=== PATIENT | male | born 1970 | race Caucasian/White ===

== ENCOUNTER 2019-01-22 09:04 | Emergency (ER) | payer BC, SELFPAY ==
[2019-01-22 09:12] VITALS: BP 153/100; PULSE 92; RESP 22; TEMP 37.1; O2SAT 92
--- NOTE | 2019-01-22 09:12 | DI.RAD.S_ITS ---
PROCEDURE: XR CHEST 2V INDICATIONS: shortness of breath TECHNIQUE: 2 views of the chest were acquired. COMPARISON: [facility], , CHEST 2 VIEW, 08/19/2008, 21:45. FINDINGS: Surgical changes and devices: None. Lungs and pleura: There may be airspace disease developing at the left lung base. The perihilar interstitial markings are slightly prominent. No large effusion or pneumothorax is evident. Mediastinum: Mediastinal contours are normal. Heart size is normal. Bones and chest wall: No suspicious bony abnormalities. Soft tissues appear unremarkable. IMPRESSION: Questionable left basilar pneumonia versus overlying soft tissues. Dictated by: Obinna Oneill M.D. on 01/22/2019 at 8:38 Approved by: Obinna Oneill M.D. on 01/22/2019 at 8:47
[2019-01-22 09:15] VITALS: PULSE 112; RESP 26; O2SAT 88
[2019-01-22] MEDS: ALBUTEROL/IPRATROPIUM 3 ML AMPUL INH (09:27)
[2019-01-22 09:28] VITALS: PULSE 82; RESP 14; O2SAT 94
[2019-01-22 09:50] VITALS: BP 124/93; PULSE 109; PULSE 113; RESP 17; RESP 18; O2SAT 94; O2SAT 96
--- NOTE | 2019-01-22 09:51 | ED_ITS ---
HPI - SOB/Dyspnea General Chief Complaint: Shortness of Breath/Dyspnea Stated Complaint: trouble breathing, doesn't feel good Time Seen by Provider: 01/22/19 09:20 Source: patient Mode of arrival: ambulatory Limitations: no limitations History of Present Illness Patient is a 48-year-old male history of smoking presenting with increasing sh ortness of breath for the last 3 days. He says he has been coughing up productive sputum. He works in a [employer] he pushed through it not stopping even despite his breathing problems. He initially felt like he could not take a deep breath when he came in initial oxygen level was 88%. He has since had a breathing treatment he overall feels like his breathing is better than when he came in. However he is now noted to be tachycardic. MD Complaint: shortness of breath Context: occurred during exertion Consistency/Duration: constant Relieving factors: bronchodilators Exacerbating factors: exertion Known history of: COPD Associated symptoms: cough and sputum production Related Data Previous Rx's Medication Instructions Recorded albuterol sulfate [Ventolin HFA] 0 INH Q4H #8 gm 08/19/16 prednisone 0 PO QDAY #7 tab 08/19/16 albuterol sulfate 1 puff INHALATION Q4-6H PRN #8.5 01/22/19 gram levofloxacin [Levaquin] 750 mg PO DAILY #5 tab 01/22/19 prednisone 50 mg PO DAILY 5 Days #5 tab 01/22/19 Allergies Allergy/AdvReac Type Severity Reaction Status Date / Time latex [LATEX] Allergy Unknown Verified 01/22/19 11:12 Review of Systems Review of Systems GENERAL: Denies chills, fatigue, malaise, fever, sweats, travel HEENT: Denies sinus pain, ear pain, sore throat, difficulty swallowing, neck pain RESPIRATORY: See HPI CARDIOVASCULAR: Denies chest pain, palpitations, orthopnea, edema GASTROINTESTINAL: Denies nausea, vomiting, abdominal pain, diarrhea, constipation, melena. : Denies dysuria, frequency, incontinence, hematuria, urinary retention, flank pain. MUSCULOSKELETAL: Denies weakness, joint pain, or bony pain SKIN: No rash, no erythema, no pruritus NEUROLOGIC: Denies weakness, dizziness, headache, numbness, change in speech, confusion PSYCHIATRIC: No concerning psychosocial issues. 12 point review of systems is negative except for those stated above and HPI [facility] Medical History COPD (chronic obstructive pulmonary disease) (Acute) Social History Smoking Status: Current every day smoker Social History Smoking Status: Current every day smoker Exam Initial Vital Signs Initial Vital Signs: Vital Signs Temperature 98.8 F 01/22/19 09:12 Pulse Rate 92 H 01/22/19 09:12 Respiratory Rate 22 01/22/19 09:12 Blood Pressure 153/100 H 01/22/19 09:12 Pulse Oximetry 92 01/22/19 09:12 GENERAL: Well-appearing, well-nourished and in no acute distress. HEENT: Head atraumatic,EOMI, pupils reactive CARDIOVASCULAR: Tachycardic regular RESPIRATORY: Decreased breath sounds on the left crackles bilaterally able speak in full sentences no respiratory distress ABDOMEN: Soft, nontender. Normoactive bowel sounds all 4 quadrants. No guarding or rebound. EXTREMITIES: Normal range of motion, no clubbing or edema. Neurovascularly intact NEUROLOGICAL: Alert and oriented x4.Normal gait and speech. Cranial nerves II through XII grossly intact. SKIN: Warm, dry, no laceration, no petechiae, no rashes or lesions. Scores CURB-65 Confusion: No BUN >19mg/dL (>7mmol/L): No Respiratory rate greater or equal to 30: No SBP <90mmHg or DBP less or equal to 60mmHg: No Age 65 or Older: No CURB-65 Total: 0 Score 0-1 Outpatient care, Score 2 Inpt vs. Obs, Score 3 or over Inpt admit with ICU for score of 4-5 Course Orders Ordered: ED Orders 01/22/19 09:50 B Type Natriuretic Peptide Stat Complete Blood Count AUTO DIFF Stat Comprehensive Metabolic Panel Stat Lactate (Lactic Acid) Stat Procalcitonin Stat Troponin & CK Cardiac Panel Stat 01/22/19 09:58 CT angio chest PE protocol Stat Discontinued Medications Albuterol/Ipratropium (Duoneb) 3 ml INH NOW ONE Stop: 01/22/19 09:21 Last Admin: 01/22/19 09:27 Dose: 3 ml Sodium Chloride (Normal Saline 0.9%) 1,000 mls @ 1,000 mls/hr IV BOLUS ONE Stop: 01/22/19 10:56 Last Infusion: 01/22/19 11:40 Dose: 0 mls/hr Admin: 01/22/19 10:16 Dose: 1,000 mls/hr Methylprednisolone (Solu-Medrol 125 Mg Vial) 125 mg IV NOW ONE Stop: 01/22/19 09:58 Last Admin: 01/22/19 10:16 Dose: 125 mg Vital Signs - 8 hr 01/22/19 11:08 01/22/19 11:41 Pulse Rate 105 H 93 H Respiratory Rate 14 17 Blood Pressure 137/89 Blood Pressure [Right Arm] 132/96 H Pulse Oximetry 97 96 MDM - SOB/Dyspnea Lab Data Attestation: I reviewed the patient's lab results. Result diagrams: 01/22/19 09:50 01/22/19 09:50 Lab Results 01/22/19 01/22/19 01/22/19 Range/Units 09:50 09:50 09:50 WBC 7.9 (4.5-11.0) X10^3/uL RBC 5.01 (4.5-5.9) X10^6/uL Hgb 16.2 (13.5-17.5) g/dL Hct 47.2 (41-53) % MCV 94.1 (80-100) fL MCH 32.3 (26-34) PG MCHC 34.3 (30-36) % RDW 13.8 (11.6-14.8) % Plt Count 339 (150-400) X10^3/uL Neut % (Auto) 78.3 H (50-75) % Lymph % (Auto) 12.8 L (25-40) % Kingman % (Auto) 6.8 (3-14) % Eos % (Auto) 1.6 L (2-4) % Baso % (Auto) 0.5 (0-2) % Neut # (Auto) 6200 (6111-0420) /uL Lymph # (Auto) 1000 L (6176-8835) /uL Kingman # (Auto) 500 (0-900) /uL Eos # (Auto) 100 (0-450) /uL Baso # (Auto) 0 (0-100) /uL Sodium 143 (137-145) mmol/L Potassium 3.4 (3.4-5.1) mmol/L Chloride 102 (98-107) mmol/L Carbon Dioxide 25 (22-32) mmol/L BUN 8 L (9-20) mg/dL Creatinine 0.80 (0.66-1.25) mg/dL Estimated GFR > 60.0 (>60) mL/min BUN/Creatinine Ratio 10.0 (6-22) Glucose 114 H (70-100) mg/dL Lactate 2.4 H (0.7-2.1) mmol/L Calcium 9.5 (8.4-10.2) mg/dL Total Bilirubin 0.5 (0.2-1.3) mg/dL AST 28 (17-59) IU/L ALT 23 (21-72) IU/L Alkaline Phosphatase 80 (38-126) U/L Total Creatine Kinase (55-170) U/L CK-MB (CK-2) (<2.37) ng/mL CK-MB (CK-2) Rel Index (1.5-5.0) % Troponin I (0.01-0.034) ng/mL B-Natriuretic Peptide (<100) Total Protein 7.4 (6.3-8.2) g/dL Albumin 4.4 (3.5-5.0) g/dL Globulin 3.0 (1.7-4.1) g/dL Albumin/Globulin Ratio 1.5 (1.0-2.8) Procalcitonin (<0.5) ng/mL 01/22/19 01/22/19 01/22/19 Range/Units 09:50 09:50 09:50 WBC (4.5-11.0) X10^3/uL RBC (4.5-5.9) X10^6/uL Hgb (13.5-17.5) g/dL Hct (41-53) % MCV (80-100) fL MCH (26-34) PG MCHC (30-36) % RDW (11.6-14.8) % Plt Count (150-400) X10^3/uL Neut % (Auto) (50-75) % Lymph % (Auto) (25-40) % Kingman % (Auto) (3-14) % Eos % (Auto) (2-4) % Baso % (Auto) (0-2) % Neut # (Auto) (8065-9647) /uL Lymph # (Auto) (8169-0054) /uL Kingman # (Auto) (0-900) /uL Eos # (Auto) (0-450) /uL Baso # (Auto) (0-100) /uL Sodium (137-145) mmol/L Potassium (3.4-5.1) mmol/L Chloride (98-107) mmol/L Carbon Dioxide (22-32) mmol/L BUN (9-20) mg/dL Creatinine (0.66-1.25) mg/dL Estimated GFR (>60) mL/min BUN/Creatinine Ratio (6-22) Glucose (70-100) mg/dL Lactate (0.7-2.1) mmol/L Calcium (8.4-10.2) mg/dL Total Bilirubin (0.2-1.3) mg/dL AST (17-59) IU/L ALT (21-72) IU/L Alkaline Phosphatase (38-126) U/L Total Creatine Kinase 193 H (55-170) U/L CK-MB (CK-2) 1.27 (<2.37) ng/mL CK-MB (CK-2) Rel Index 0.7 L (1.5-5.0) % Troponin I < 0.012 (0.01-0.034) ng/mL B-Natriuretic Peptide < 100 (<100) Total Protein (6.3-8.2) g/dL Albumin (3.5-5.0) g/dL Globulin (1.7-4.1) g/dL Albumin/Globulin Ratio (1.0-2.8) Procalcitonin < 0.05 (<0.5) ng/mL Imaging Data Chest x-ray: Radiologist's impression: PROCEDURE: XR CHEST 2V INDICATIONS: shortness of breath TECHNIQUE: 2 views of the chest were acquired. COMPARISON: [facility], CHEST 2 VIEW, 08/19/2008, 21:45. FINDINGS: Surgical changes and devices: None. Lungs and pleura: There may be airspace disease developing at the left lung base. The perihilar interstitial markings are slightly prominent. No large effusion or pneumothorax is evident. Mediastinum: Mediastinal contours are normal. Heart size is normal. Bones and chest wall: No suspicious bony abnormalities. Soft tissues appear unremarkable. IMPRESSION: Questionable left basilar pneumonia versus overlying soft tissues. Dictated by: Obinna Oneill M.D. on 01/22/2019 at 8:38 CT scan - chest: Radiologist's impression: PROCEDURE: CT ANGIO CHEST PE PROTOCOL INDICATIONS: hypoxia tachycardic TECHNIQUE: After the administration of intravenous contrast, 2 mm thick sections acquired from the pulmonary apices to the posterior costophrenic angles. 3-dimensional maximum intensity projection (MIP) coronal and sagittal reformats were then acquired through the thorax. For radiation dose reduction, the following was used: automated exposure control, adjustment of mA and/or kV according to patient size. COMPARISON: [facility], , XR CHEST 2V, 01/22/2019, 9:13. FINDINGS: Image quality: Diagnostic. Pulmonary arteries: Pulmonary arteries are normal in size, and demonstrate no intraluminal filling defects to suggest central pulmonary embolism. Lungs and pleura: The mild pulmonary hyperexpansion is present. Apical emphysematous changes are identified. No focal consolidation, effusion, or pneumothorax is evident. Mild bronchial wall thickening within the bilateral lower lobes may be present. Mediastinum: Heart size is normal, without pericardial effusion. No mediastinal or hilar adenopathy. Coronary artery atherosclerosis is present. Thoracic aorta is normal in caliber and enhancement. Esophagus is normal in caliber. There is a small hiatal hernia. Bones and chest wall: No suspicious bony lesions. Ribs and thoracic spine appear intact throughout. Mild to moderate age-appropriate degenerative changes of the thoracic spine appear to be present. Thyroid gland is not enlarged or adequately evaluated. No axillary or supraclavicular adenopathy. Abdomen: The included portions of the upper abdomen demonstrate the liver to be diffusely hypodense when compared to the spleen. There is slightly more prominent hypodensity noted along the falciform ligament of the lateral segment of the left hepatic lobe, suggesting a more focally prominent area of fatty infiltration. IMPRESSION: 1. No evidence of pulmonary emboli. 2. Early emphysematous changes of the lungs with additional findings suggesting chronic obstructive pulmonary disease. Please correlate clinically. 3. Coronary artery atherosclerosis. 4. Nonspecific mild bronchial wall thickening within the lung bases. Please correlate clinically to exclude bronchitis. 5. Hepatic steatosis. 6. Small hiatal hernia. Dictated by: Obinna Oneill M.D. on 01/22/2019 at 9:42 ECG Data Attestation: I personally reviewed and interpreted this ECG as follows: Prior ECG tracings: not available for review Interpretation: Sinus rhythm rate [address] changes appear interval 163 is QTC 416 as some artifact noted MDM Narrative Medical decision making narrative: Patient overall is feeling much better after bronchodilators. He does have pneumonia on x-ray. He has no fever no leuko cytosis. A curb 65 score is 0. At this time pacing be discharged with antibiotics and treated as outpatient. Is given albuterol inhaler and instructions on how to use it. Discharge Plan Departure Patient Disposition: Home Clinical Impression: Community acquired pneumonia Qualifiers: Laterality: left Lung location: lower lobe of lung Qualified Code(s): J18.1 - Lobar pneumonia, unspecified organism Discharge Date/Time: 01/22/19 11:42 Interventions: ED Discharge Assessment Last Done: 01/22/19 11:41 Instructions: DI for Pneumonia -- Adult Activity Restrictions/Additional Instructions: *You have been diagnosed with pneumonia *What to do: Rest, increase fluid intake, recommend stop smoking *Continue to take medications as directed Levaquin 750 mg once a day for 5 days Prednisone 50 mg once a day for 5 days Albuterol inhaler with spacer every 4 hours if needed for coughing or shortness of breath *Follow up with your primary care provider in 2-3 days *Return to ER if you should have increasing shortness of breath, chest pain, confusion or any new, worsening or concerning symptoms Prescriptions: New prednisone 50 mg tablet 50 mg PO DAILY 5 Days Qty: 5 RF: 0 levofloxacin [Levaquin] 750 mg tablet 750 mg PO DAILY Qty: 5 RF: 0 albuterol sulfate 90 mcg/actuation HFA aerosol inhaler 1 puff INHALATION Q4-6H PRN (Reason: shortness of breath or wheezing) Qty: 8.5 RF: 0 No Action prednisone 20 MG tablet PO QDAY Qty: 7 RF: 0 albuterol sulfate [Ventolin HFA] 90 MCG/PUFF HFA aerosol inhaler INH Q4H Qty: 8 RF: 0 Referrals: Percy Barrera MD [Physician] -
--- NOTE | 2019-01-22 09:58 | DI.CT.S_ITS ---
PROCEDURE: CT ANGIO CHEST PE PROTOCOL INDICATIONS: hypoxia tachycardic TECHNIQUE: After the administration of intravenous contrast, 2 mm thick sections acquired from the pulmonary apices to the posterior costophrenic angles. 3-dimensional maximum intensity projection (MIP) coronal and sagittal reformats were then acquired through the thorax. For radiation dose reduction, the following was used: automated exposure control, adjustment of mA and/or kV according to patient size. COMPARISON: [facility], CR, XR CHEST 2V, 01/22/2019, 9:13. FINDINGS: Image quality: Diagnostic. Pulmonary arteries: Pulmonary arteries are normal in size, and demonstrate no intraluminal filling defects to suggest central pulmonary embolism. Lungs and pleura: The mild pulmonary hyperexpansion is present. Apical emphysematous changes are identified. No focal consolidation, effusion, or pneumothorax is evident. Mild bronchial wall thickening within the bilateral lower lobes may be present. Mediastinum: Heart size is normal, without pericardial effusion. No mediastinal or hilar adenopathy. Coronary artery atherosclerosis is present. Thoracic aorta is normal in caliber and enhancement. Esophagus is normal in caliber. There is a small hiatal hernia. Bones and chest wall: No suspicious bony lesions. Ribs and thoracic spine appear intact throughout. Mild to moderate age-appropriate degenerative changes of the thoracic spine appear to be present. Thyroid gland is not enlarged or adequately evaluated. No axillary or supraclavicular adenopathy. Abdomen: The included portions of the upper abdomen demonstrate the liver to be diffusely hypodense when compared to the spleen. There is slightly more prominent hypodensity noted along the falciform ligament of the lateral segment of the left hepatic lobe, suggesting a more focally prominent area of fatty infiltration. IMPRESSION: 1. No evidence of pulmonary emboli. 2. Early emphysematous changes of the lungs with additional findings suggesting chronic obstructive pulmonary disease. Please correlate clinically. 3. Coronary artery atherosclerosis. 4. Nonspecific mild bronchial wall thickening within the lung bases. Please correlate clinically to exclude bronchitis. 5. Hepatic steatosis. 6. Small hiatal hernia. Dictated by: Obinna Oneill M.D. on 01/22/2019 at 9:42 Approved by: Obinna Oneill M.D. on 01/22/2019 at 9:45
[2019-01-22 10:02] LABS: Add Manual Diff / Slide Review NO; Basophils Absolute Auto 0 /uL (0-100); Basophils Percent Auto 0.5 % (0-2); Eosinophils Absolute Auto 100 /uL (0-450); Eosinophils Percent Auto 1.6 % (2-4); Hematocrit 47.2 % (41-53); Hemoglobin 16.2 g/dL (13.5-17.5); Lymphocytes Absolute Auto 1000 /uL (1100-4500); Lymphocytes Percent Auto 12.8 % (25-40); Mean Corpuscular HGB Conc 34.3 % (30-36); Mean Corpuscular Hemoglobin 32.3 PG (26-34); Mean Corpuscular Volume 94.1 fL (80-100); Monocytes Absolute Auto 500 /uL (0-900); Monocytes Percent Auto 6.8 % (3-14); Neutrophils Absolute Auto 6200 /uL (1500-7000); Neutrophils Percent Auto 78.3 % (50-75); Platelet Count 339 X10^3/uL (150-400); Red Blood Cell Count 5.01 X10^6/uL (4.5-5.9); Red Cell Distribution Width 13.8 % (11.6-14.8); White Blood Cell Count 7.9 X10^3/uL (4.5-11.0)
[2019-01-22 10:07] LABS: Lactate (Lactic Acid) 2.4 mmol/L (0.7-2.1)
[2019-01-22 10:11] LABS: Alanine Aminotransferase 23 IU/L (21-72); Albumin 4.4 g/dL (3.5-5.0); Albumin Globulin Ratio 1.5 (1.0-2.8); Alkaline Phosphatase 80 U/L (38-126); Aspartate Aminotransferase 28 IU/L (17-59); Bilirubin Total 0.5 mg/dL (0.2-1.3); Blood Urea Nitrogen 8 mg/dL (9-20); Calcium 9.5 mg/dL (8.4-10.2); Carbon Dioxide 25 mmol/L (22-32); Chloride 102 mmol/L (98-107); Creatine Kinase 193 U/L (55-170); Estimated Glomerular Filt Rate > 60.0 mL/min (>60); Glucose 114 mg/dL (70-100); HEMOLYSIS < 15 (0-50); Potassium 3.4 mmol/L (3.4-5.1); Sodium 143 mmol/L (137-145); Total Protein 7.4 g/dL (6.3-8.2)
[2019-01-22] MEDS: methylPREDNISolone 125 MG/2 ML VIAL IV (10:16)
[2019-01-22] MEDS: SODIUM CHLORIDE 0.9% 1,000 ML 1000 ML IV (10:16)
[2019-01-22 10:22] LABS: Troponin I < 0.012 ng/mL (0.01-0.034)
[2019-01-22 10:26] LABS: CKMB % Relative Index 0.7 % (1.5-5.0); Creatine Kinase MB 1.27 ng/mL (<2.37)
[2019-01-22 10:27] LABS: B Type Natriuretic Peptide < 100 (<100); Procalcitonin < 0.05 ng/mL (<0.5)
[2019-01-22 11:08] VITALS: BP 132/96; PULSE 105; RESP 14; O2SAT 97
--- NOTE | 2019-01-22 11:12 | PC.NURSE ---
RT Called to bedside, breathing treatment started at this time.
[2019-01-22 11:41] VITALS: BP 137/89; PULSE 93; RESP 17; O2SAT 96
[2019-01-22 11:54] LABS: Reflexed Lactate in 2 Hours Y
== END 2019-01-22 11:42 | disposition home or self-care (01) ==
PROVIDERS: Emergency Provider Emergency Medicine
DX: J18.1 Lobar pneumonia, unspecified organism (principal); R00.0 Tachycardia, unspecified; R09.02 Hypoxemia
CPT/HCPCS: 36591; 71046; 71275; 80053; 82550; 82553; 83605; 83880; 84145; 84484; 85025; 93005; 93010; 94640; 96361; 96374; 99283; 99285; J2930; Q9967

== ENCOUNTER → 2019-06-15 10:28 | Outpatient (CLI) | payer BC, SELFPAY | PROVIDERS: Visit Provider Nurse Practitioner | DX: J02.9 Acute pharyngitis, unspecified (principal) | CPT/HCPCS: 87070 ==

== ENCOUNTER → 2019-06-15 11:13 | Outpatient (CLI) | payer BC, SELFPAY ==
--- NOTE | 2019-06-15 11:19 | DI.RAD.S_ITS ---
PROCEDURE: XR CHEST 2V INDICATIONS: Wheezing, r/o pneunomia TECHNIQUE: 2 views of the chest were acquired. COMPARISON: [facility], CR, XR CHEST 2V, 01/22/2019, 9:13. FINDINGS: Surgical changes and devices: None. Lungs and pleura: Lungs are clear. No pleural effusions or pneumothorax. Mediastinum: Mediastinal contours are normal. Heart size is normal. Bones and chest wall: No suspicious bony abnormalities. Soft tissues appear unremarkable. IMPRESSION: No acute process. Dictated by: Mimi Pacheco M.D. on 06/15/2019 at 11:39 Approved by: Mimi Pacheco M.D. on 06/15/2019 at 11:40
== END ==
PROVIDERS: Visit Provider Nurse Practitioner
DX: R06.2 Wheezing (principal); J02.9 Acute pharyngitis, unspecified
CPT/HCPCS: 71046; 87070

== ENCOUNTER → 2020-02-01 11:08 | Outpatient (CLI) | payer OTHER, SELFPAY ==
[2020-02-01 12:53] LABS: Cholesterol 222 mg/dL (140-199); Triglycerides 145 mg/dL (35-150)
[2020-02-01 13:01] LABS: HDL Cholesterol 119 mg/dL (40-60); LDL Cholesterol Calculated 74 mg/dL (<100)
[2020-02-01 13:08] LABS: Vitamin D 25 Hydroxy (D3) 15.3 ng/mL (30.0-100.0)
[2020-02-03 15:15] LABS: QuantiFERON Mitogen Value 7.12 IU/mL (.); QuantiFERON Nil Value 0.05 IU/mL (.); QuantiFERON TB Gold Plus Negative (Negative); QuantiFERON TB1 Ag Value 0.07 IU/mL (.); QuantiFERON TB2 Ag Value 0.07 IU/mL (.)
== END ==
PROVIDERS: PCP Student in an Organized Health Care Education/Training Program; Referring Provider Student in an Organized Health Care Education/Training Program; Visit Provider Student in an Organized Health Care Education/Training Program
DX: Z13.220 Encounter for screening for lipoid disorders (principal); Z20.1 Contact with and (suspected) exposure to tuberculosis; E55.9 Vitamin D deficiency, unspecified
CPT/HCPCS: 36415; 80061; 82306; 86480

== ENCOUNTER → 2020-07-18 13:33 | Outpatient (CLI) | payer OTHER, SELFPAY ==
[2020-07-18 16:19] LABS: COVID19 -Nasal RAPID Negative (Negative)
== END ==
PROVIDERS: Physician Assistant; PCP Student in an Organized Health Care Education/Training Program; Visit Provider Internal Medicine
DX: Z11.59 Encounter for screening for other viral diseases (principal)
CPT/HCPCS: 87635

== ENCOUNTER → 2020-07-19 12:55 | Outpatient (CLI) | payer OTHER, SELFPAY ==
--- NOTE | 2020-07-25 09:15 | PM.PFT.1 ---
Pulmonary Function Test Referral & Results Date Patient Seen: 07/19/20 Requesting provider: Jesse Perez Indication: Asthma, COPD Results: The spirometry demonstrates an FVC of 3.75 L which is 84% of predicted. The FEV1 was measured at 1.72 L which is 49% of predicted. The FEV1/FVC ratio was 46 which is 58% of predicted. Following the administration of bronchodilator there was 38% improvement in FEV1 and a 138% improvement in FEF 25-75%. Lung volumes show an SVC of 3.64 L which is 83% of predicted. The diffusing capacity was measured at 25.99 which is 96% of predicted. The maximum voluntary ventilation was reduced Interpretation: This study demonstrates moderately severe obstructive lung disease based on reduction FEV1 and FEV1/FVC ratio. There is evidence of significant benefit following bronchodilator as above There is a minimal reduction in lung volumes suggesting perhaps some element of restrictive lung disease Diffusing capacity is normal Altogether this is consistent with a diagnosis of asthma, rather than COPD given relatively preserved lung volumes. Clinical correlation suggested
== END ==
PROVIDERS: PCP Student in an Organized Health Care Education/Training Program; Referring Provider Student in an Organized Health Care Education/Training Program; Visit Provider Student in an Organized Health Care Education/Training Program
DX: J44.9 Chronic obstructive pulmonary disease, unspecified (principal); J45.909 Unspecified asthma, uncomplicated; F17.210 Nicotine dependence, cigarettes, uncomplicated
CPT/HCPCS: 94060; 94726; 94729

== ENCOUNTER → 2021-01-11 09:58 | Outpatient (CLI) | payer OTHER, SELFPAY ==
[2021-01-11 10:29] LABS: COVID19 -Nasal RAPID Negative (Negative)
== END ==
PROVIDERS: PCP Student in an Organized Health Care Education/Training Program; Visit Provider Physician Assistant
DX: R05 Cough (principal); R06.2 Wheezing; Z20.822 Contact with and (suspected) exposure to COVID-19
CPT/HCPCS: 87635

== ENCOUNTER 2023-11-02 20:06 | Emergency (ER) | payer OTHER, SELFPAY ==
[2023-11-02 20:09] VITALS: BP 150/112; PULSE 94; RESP 18; TEMP 36.1; O2SAT 99; BMI 22.6
--- NOTE | 2023-11-02 20:13 | DI.RAD.S_ITS ---
PROCEDURE: XR FOOT LT MIN 3V INDICATIONS: swelling, pain, no injury TECHNIQUE: 3 views of the foot were acquired. COMPARISON: None. FINDINGS: Bones: No fractures or dislocations. Degenerative changes of the midfoot are noted with a prominent dorsal osteophyte noted within the region of pain. No suspicious bony lesions. Soft tissues: No tibiotalar joint effusion. Achilles tendon appears normal. Subcutaneous swelling, most notable along the dorsal aspect of the foot. IMPRESSION: No acute bony abnormality. Degenerative changes of the midfoot with a prominent dorsal osteophyte noted within the region of pain. Dictated by: Socrates Paris M.D. on 11/02/2023 at 21:11 Approved by: Socrates Paris M.D. on 11/02/2023 at 21:12
--- NOTE | 2023-11-02 21:42 | ED_ITS ---
HPI - Extremity Problem General Chief complaint: Extremity Problem,Nontraumatic Stated complaint: LT FOOT SWELLING/TINGLING Time Seen by Provider: 11/02/23 21:33 Source: patient Mode of arrival: Ambulatory History of Present Illness HPI Narrative: Patient is a 53-year-old male here for evaluation of pain and swelling and tingling to the top of his left foot. He states he only noticed the discomfort within the past day or so. No specific trauma. Does not report any new foot wear. States that the redness was at the top of his foot. He actually could not put his shoe on because of the discomfort. Denies any fevers. No prior injuries. Related Data Previous Rx's Medication Instructions Recorded fluticasone 250 mcg-salmeterol 50 1 inh inhalation BID #60 ea 10/30/22 mcg/dose blistr powdr for inhalation (Advair Diskus) hydroxyzine HCl 25 mg tablet 25 mg PO BID PRN anxiety #180 tabs 11/11/22 budesonide 0.5 mg/2 mL suspension 0.5 mg (2 mL) inhalation BID #180 11/25/22 for nebulization mL albuterol sulfate 90 mcg/actuation 2 puff inhalation Q4H PRN wheezing 12/29/22 aerosol inhaler #18 grams cephalexin 500 mg capsule 500 mg PO QID 5 days #20 caps 11/02/23 Allergies Allergy/AdvReac Type Severity Reaction Status Date / Time No Known Drug Allergies Allergy Verified 11/02/23 20:09 Review of Systems Constitutional Constitutional: Reports system reviewed and no additional complaints, except as documented Musculoskeletal Musculoskeletal: Reports system reviewed and no additional complaints, except as documented Integumentary/Breasts Skin/Breast: Reports system reviewed and no additional complaints, except as documented Neurologic Neurologic: Reports system reviewed and no additional complaints, except as documented Patient History Medical History Alcoholism Psoriasis Asthma Migraines Tuberculosis (~1971) Family History (Updated 12/06/19 @ 18:29 by Josefina Em) Mother Cancer Social History Smoking Status: Current every day smoker Smoking Status: Current every day smoker alcohol intake frequency: 3 or more drinks per day Substance Use Type: marijuana Exam Initial Vital Signs Initial Vital Signs: Vital Signs Temperature 97.0 F L 11/02/23 20:09 Pulse Rate 94 H 11/02/23 20:09 Respiratory Rate 18 11/02/23 20:09 Blood Pressure 150/112 H 11/02/23 20:09 Pulse Oximetry 99 11/02/23 20:09 Oxygen Delivery Method Room Air 11/02/23 20:09 Skin Other: Mild redness to the dorsum of the left foot. No vesicles or pustules noted. Extrem Other: Pain seems to be very well localized to the top of the left foot. No ankle discomfort. No specific trauma. Course Orders Ordered: ED Orders 11/02/23 20:13 XR foot LT min 3V Stat Vital Signs Vital signs: Vital Signs - 8 hr 11/02/23 20:09 11/02/23 21:45 Temperature 97.0 F L Pulse Rate 94 H 97 H Respiratory Rate 18 16 Blood Pressure 150/112 H 150/103 H Pulse Oximetry 99 98 Oxygen Delivery Method Room Air Room Air MDM - Extremity (Nontraumatic) Imaging Data Extremity x-ray #1: Radiologist's Impression: PROCEDURE: XR FOOT LT MIN 3V INDICATIONS: swelling, pain, no injury TECHNIQUE: 3 views of the foot were acquired. COMPARISON: None. FINDINGS: Bones: No fractures or dislocations. Degenerative changes of the midfoot are noted with a prominent dorsal osteophyte noted within the region of pain. No suspicious bony lesions. Soft tissues: No tibiotalar joint effusion. Achilles tendon appears normal. Subcutaneous swelling, most notable along the dorsal aspect of the foot. IMPRESSION: No acute bony abnormality. Degenerative changes of the midfoot with a prominent dorsal osteophyte noted within the region of pain. [facility] Narrative Medical decision making narrative: X-ray show no fractures. There was some redness to the dorsum of his left foot where his discomfort is located. He denies any injury with related to foot wear. Unsure whether or not the presentation today is an infection or just an inflammation or irritation. I discuss this with the patient. He understands this. The plan will be is for him to receive a printed prescription for antibiotics. He will try conservative measures for the next 24-48 hours and if his symptoms worsen or become more red and more painful he was start the antibiotics. He was given return precautions. He expressed understanding and agreement. Discharge Plan Departure Patient Disposition: Home Clinical Impression: Foot pain, left Activity Restrictions/Additional Instructions: Recommend ice for the next couple days. If your symptoms worsen start taking the antibiotics as directed. If your symptoms improve then just discard the antibiotic. Return to the emergency department for new symptoms. Prescriptions: New cephalexin 500 mg capsule 500 mg PO QID 5 Days Qty: 20 0RF No Action fluticasone propion-salmeterol [Advair Diskus] 250-50 mcg/dose blister with device 1 inh inhalation BID Qty: 60 1RF budesonide 0.5 mg/2 mL suspension for nebulization 0.5 mg inhalation BID Qty: 180 3RF albuterol sulfate 90 mcg/actuation HFA aerosol inhaler 2 puff INHALATION Q4H PRN (Reason: wheezing) Qty: 18 1RF hydroxyzine HCl 25 mg tablet 25 mg PO BID PRN (Reason: anxiety) Qty: 180 3RF Referrals: Jesse Perez MD [Primary Care Provider] - Stand Alone Forms: Patient Portal/API
[2023-11-02 21:45] VITALS: BP 150/103; PULSE 97; RESP 16; O2SAT 98
== END 2023-11-02 21:51 | disposition home or self-care (01) ==
PROVIDERS: Emergency Provider Emergency Medicine; PCP Student in an Organized Health Care Education/Training Program
DX: M79.672 Pain in left foot (principal)
CPT/HCPCS: 73630; 99283

== ENCOUNTER 2024-01-25 22:49 | Emergency (ER) | payer OTHER, SELFPAY ==
[2024-01-25 22:51] VITALS: BP 148/98; PULSE 120; RESP 17; TEMP 36.1; O2SAT 98; BMI 21.7
--- NOTE | 2024-01-25 22:56 | DI.RAD.S_ITS ---
PROCEDURE: XR HIP W PEL IF DONE RT 2V INDICATIONS: fall, swelling, pain TECHNIQUE: AP pelvis with lateral view(s) of the right hip(s). COMPARISON: None. FINDINGS: Bones: No fractures or dislocations. Pelvic ring appears intact. No suspicious bony lesions. Soft tissues: The visualized bowel gas pattern is normal. No suspicious soft tissue calcifications. Mild peripheral vascular calcification. IMPRESSION: No acute bony abnormality. Dictated by: Adore Kemp M.D. on 01/25/2024 at 23:50 Approved by: Adore Kemp M.D. on 01/25/2024 at 23:51
--- NOTE | 2024-01-26 03:23 | ED.FALL ---
HPI - Fall General Chief Complaint: Fall Stated Complaint: fall, hip pain Source: patient Mode of arrival: Ambulatory History of Present Illness HPI Narrative: Patient left ED without seeing provider Related Data Previous Rx's Medication Instructions Recorded fluticasone 250 mcg-salmeterol 50 1 inh inhalation BID #60 ea 10/30/22 mcg/dose blistr powdr for inhalation (Advair Diskus) hydroxyzine HCl 25 mg tablet 25 mg PO BID PRN anxiety #180 tabs 11/11/22 budesonide 0.5 mg/2 mL suspension 0.5 mg (2 mL) inhalation BID #180 11/25/22 for nebulization mL albuterol sulfate 90 mcg/actuation 2 puff inhalation Q4H PRN wheezing 12/29/22 aerosol inhaler #18 grams Allergies Allergy/AdvReac Type Severity Reaction Status Date / Time No Known Drug Allergies Allergy Verified 01/25/24 22:51 Patient History Medical History Alcoholism Psoriasis Asthma Migraines Tuberculosis (~1971) Family History Mother Cancer Social History Smoking Status: Current every day smoker Smoking Status: Current every day smoker alcohol intake frequency: 3 or more drinks per day Substance Use Type: marijuana Exam Initial Vital Signs Initial Vital Signs: Vital Signs Temperature 97 F L 01/25/24 22:51 Pulse Rate 120 H 01/25/24 22:51 Respiratory Rate 17 01/25/24 22:51 Blood Pressure 148/98 H 01/25/24 22:51 Pulse Oximetry 98 01/25/24 22:51 Oxygen Delivery Method Room Air 01/25/24 22:51 Course Orders Ordered: ED Orders 01/25/24 22:56 XR hip w pel if done RT 2V Stat Vital Signs Vital signs: Vital Signs - 8 hr 01/25/24 22:51 Temperature 97 F L Pulse Rate 120 H Respiratory Rate 17 Blood Pressure 148/98 H Pulse Oximetry 98 Oxygen Delivery Method Room Air Discharge Plan Departure Patient Disposition: Left Without Being Seen Clinical Impression: Patient left without being seen Prescriptions: No Action fluticasone propion-salmeterol [Advair Diskus] 250-50 mcg/dose blister with device 1 inh inhalation BID Qty: 60 1RF budesonide 0.5 mg/2 mL suspension for nebulization 0.5 mg inhalation BID Qty: 180 3RF albuterol sulfate 90 mcg/actuation HFA aerosol inhaler 2 puff INHALATION Q4H PRN (Reason: wheezing) Qty: 18 1RF hydroxyzine HCl 25 mg tablet 25 mg PO BID PRN (Reason: anxiety) Qty: 180 3RF
== END 2024-01-26 00:34 | disposition left against medical advice (07) ==
PROVIDERS: Emergency Provider Emergency Medicine
DX: M25.551 Pain in right hip (principal)
CPT/HCPCS: 73502; 99281

== ENCOUNTER → 2024-02-26 11:27 | Outpatient (CLI) | payer SELFPAY ==
--- NOTE | 2024-02-26 11:28 | DI.RAD.S_ITS ---
PROCEDURE: XR FOOT RT MIN 3V INDICATIONS: supect gout, attn right foot great toe TECHNIQUE: 3 views of the foot were acquired. COMPARISON: [facility], CR, XR FOOT LT MIN 3V, 11/02/2023, 20:37. FINDINGS: Bones: No fractures or dislocations. No suspicious bony lesions. Mild arthritic changes, most pronounced at the 1st tarsometatarsal joint and the 1st metatarsophalangeal joint. Periarticular bony erosion is present at the 1st metatarsophalangeal joint. There is periarticular osteopenia. Soft tissues: No tibiotalar joint effusion. Achilles tendon appears normal. Periarticular of soft tissue swelling. IMPRESSION: 1. There is periarticular bony erosion at the 1st metatarsophalangeal joint, in keeping with inflammatory arthritis such as gout. Dictated by: Yeny Tucker M.D. on 02/26/2024 at 16:50 Approved by: Yeny Tucker M.D. on 02/26/2024 at 16:54
[2024-02-26 11:57] LABS: Hematocrit 41.7 % (41-53); Hemoglobin 14.3 g/dL (13.5-17.5); Mean Corpuscular HGB Conc 34.3 % (30-36); Mean Corpuscular Hemoglobin 33.8 PG (26-34); Mean Corpuscular Volume 98.6 fL (80-100); Platelet Count 394 X10^3/uL (150-400); Red Blood Cell Count 4.23 X10^6/uL (4.5-5.9); Red Cell Distribution Width 14.9 % (11.6-14.8); White Blood Cell Count 5.3 X10^3/uL (4.5-11.0)
[2024-02-26 12:44] LABS: BUN Creatinine Ratio 5.3 (6-22); Blood Urea Nitrogen 4 mg/dL (9-20); C-Reactive Protein Quant 0.6 mg/dL (<1.0); Calcium 9.4 mg/dL (8.4-10.2); Carbon Dioxide 28 mmol/L (22-32); Chloride 101 mmol/L (98-107); Estimated Glomerular Filt Rate > 60 mL/min (>60); Glucose 95 mg/dL (70-100); HEMOLYSIS < 15 (0-50); Potassium 3.8 mmol/L (3.4-5.1); Sodium 137 mmol/L (137-145); Uric Acid 9.6 mg/dL (3.5-8.5)
[2024-02-26 13:01] LABS: Erythrocyte Sedimentation Rate 1 MM/HR (0-15)
== END ==
LOC: RAD 11:28
PROVIDERS: Referring Provider Nurse Practitioner Family; Visit Provider Nurse Practitioner Family
DX: M85.871 Other specified disorders of bone density and structure, right ankle and foot (principal); M79.674 Pain in right toe(s); M79.89 Other specified soft tissue disorders; L03.90 Cellulitis, unspecified
CPT/HCPCS: 36415; 73630; 80048; 84550; 85027; 85651; 86140

== ENCOUNTER → 2024-11-19 14:14 | Outpatient (CLI) | payer OTHER, SELFPAY ==
[2024-11-19 15:09] LABS: Influenza A - CEPHEID Flu A NEGATIVE (NEGATIVE); Influenza B - CEPHEID Flu B NEGATIVE (NEGATIVE); Respiratory Syncytial Virus Negative (Negative)
[2024-11-19 15:10] LABS: COVID-19 CEPHEID 4-PLEX PCR Negative (Negative)
== END ==
PROVIDERS: Visit Provider Nurse Practitioner Family
DX: R05.1 Acute cough (principal); J02.9 Acute pharyngitis, unspecified
CPT/HCPCS: 0241U; 87070

== ENCOUNTER → 2024-11-19 14:32 | Outpatient (CLI) | payer OTHER, SELFPAY ==
--- NOTE | 2024-11-19 14:35 | DI.RAD.S_ITS ---
PROCEDURE: XR CHEST 2V INDICATIONS: Cough TECHNIQUE: 2 views of the chest were acquired. COMPARISON: [facility], CR, XR CHEST 2V, 06/15/2019, 11:15. FINDINGS: Surgical changes and devices: None. Lungs and pleura: Lungs are clear. No pleural effusions or pneumothorax. Mediastinum: Mediastinal contours are normal. Heart size is normal. Bones and chest wall: No suspicious bony abnormalities. Soft tissues appear unremarkable. IMPRESSION: No acute pulmonary process. Dictated by: Naa Smart M.D. on 11/19/2024 at 15:51 Approved by: Naa Smart M.D. on 11/19/2024 at 15:58
== END ==
LOC: RAD 14:33
PROVIDERS: Referring Provider Nurse Practitioner Family; Visit Provider Nurse Practitioner Family
DX: R05.1 Acute cough (principal); J02.9 Acute pharyngitis, unspecified
CPT/HCPCS: 0241U; 71046; 87070